=== PATIENT | female | born 1970 | race Caucasian/White ===

== ENCOUNTER 2021-11-28 07:53 | Day surgery (SDC) | payer OTHER ==
[~2021-11-28] VITALS: Ht 162.6 cm; Wt 89.4 kg
[2021-11-28] MEDS ORDERED: LIDOCAINE 2% 100 MG/5 ML UJET TP ONE (11:12)
[2021-11-28] MEDS ORDERED: fentaNYL citrate 0.05 MG/ML VIAL ONE (11:12)
== END 2021-11-28 12:35 | disposition home or self-care (01) ==
LOC: MDS 07:53 → MMU 08:04 → MDS 12:35
PROVIDERS: ATTEND Internal Medicine Gastroenterology
DX: R10.30 Lower abdominal pain, unspecified (principal); K59.00 Constipation, unspecified; Z87.891 Personal history of nicotine dependence; Z79.899 Other long term (current) drug therapy
CPT/HCPCS: 45378; 81025; J3010